=== PATIENT | male | born 1940 | race Caucasian/White ===

== ENCOUNTER → 2016-03-31 | Outpatient (CLI) | payer OTHER | LOC: PCVCCLINIC 15:00 | PROVIDERS: ATTEND Internal Medicine | DX: R00.2 Palpitations (principal); E11.9 Type 2 diabetes mellitus without complications; E78.5 Hyperlipidemia, unspecified; I65.29 Occlusion and stenosis of unspecified carotid artery; Z51.81 Encounter for therapeutic drug level monitoring | CPT/HCPCS: 93005; G0463 ==

== ENCOUNTER → 2016-11-19 | Outpatient (CLI) | payer OTHER | END | disposition home or self-care (01) | LOC: PCVCCLINIC 13:20 | PROVIDERS: ATTEND Internal Medicine | DX: E78.5 Hyperlipidemia, unspecified (principal); E11.9 Type 2 diabetes mellitus without complications; R00.2 Palpitations; I65.23 Occlusion and stenosis of bilateral carotid arteries; R94.31 Abnormal electrocardiogram [ECG] [EKG]; Z79.01 Long term (current) use of anticoagulants; Z87.891 Personal history of nicotine dependence; Z79.899 Other long term (current) drug therapy | CPT/HCPCS: 80061; 93005; G0463 ==

== ENCOUNTER → 2016-11-25 | Outpatient (CLI) | payer OTHER ==
--- NOTE | 2016-11-25 11:04 | PCVCIMAG ---
APPROVED REPORT Indications Stenosis Risk Factors Diabetes Doppler Spectral Velocity Analysis PSV / EDVPSV / EDV ECA (R) 84 / 9 cm/sECA (L) 79 / 13 cm/s dICA (R) 58 / 21 cm/sdICA (L) 72 / 27 cm/s Mallory (R) 63 / 23 cm/smICA (L) 91 / 28 cm/s pICA (R) 58 / 14 cm/spICA (L) 51 / 11 cm/s Bulb (R) 67 / 16 cm/sBulb (L) 57 / 14 cm/s dCCA (R) 61 / 14 cm/sdCCA (L) 73 / 17 cm/s mCCA (R) 73 / 19 cm/smCCA (L) 91 / 19 cm/s Vert (R) 34 / 10 cm/sVert (L) 35 / 12 cm/s ICA/CCA 1.03ICA/CCA 1.25 Basic Measurements Blood Pressure: Pulses: Right Left RightLeft Brachial(Sitting) 127/12mrOq554/81mmHgTemporal Real Time B-Mode Imaging Vert. (R)AntegradeVert. (L)Antegrade Findings The right carotid bulb has mild plaque. The right proximal internal carotid artery shows no significant stenosis. The right common carotid artery shows no significant stenosis. The right external carotid artery shows no significant stenosis. The left carotid bulb has mild plaque. The left proximal internal carotid artery shows no significant stenosis. The left common carotid artery shows no significant stenosis. The left external carotid artery shows no significant stenosis. Conclusion 1. Mild plaquing involving both carotid arteries without significant stenosis 2. Antegrade vertebral flow
== END | disposition home or self-care (01) ==
LOC: PCVCIMAG 10:09
PROVIDERS: ATTEND Internal Medicine
DX: I65.23 Occlusion and stenosis of bilateral carotid arteries (principal); E11.9 Type 2 diabetes mellitus without complications; E78.5 Hyperlipidemia, unspecified; K21.0 Gastro-esophageal reflux disease with esophagitis; Z79.01 Long term (current) use of anticoagulants
CPT/HCPCS: 85610; 93880

== ENCOUNTER → 2017-05-26 | Outpatient (CLI) | payer OTHER | END | disposition home or self-care (01) | LOC: PCVCCLINIC 11:10 | DX: I65.23 Occlusion and stenosis of bilateral carotid arteries (principal); R00.2 Palpitations; E78.5 Hyperlipidemia, unspecified; E11.9 Type 2 diabetes mellitus without complications; Z79.01 Long term (current) use of anticoagulants; Z87.891 Personal history of nicotine dependence; Z79.899 Other long term (current) drug therapy | CPT/HCPCS: 36415; 80061; 85610; 93005; G0463 ==